=== PATIENT | male | born 1955 | race Caucasian/White ===

== ENCOUNTER 2018-02-13 09:02 | Emergency (ER) | payer SELFPAY ==
[~2018-02-13] VITALS: Ht 180.3 cm; Wt 82.0 kg
[2018-02-13 09:11] VITALS: BP 114/53
== END 2018-02-13 10:03 | disposition home or self-care (01) ==
LOC: ER 09:48
DX: M25.551 Pain in right hip (principal); Z91.81 History of falling; Z98.890 Other specified postprocedural states; Z88.0 Allergy status to penicillin
CPT/HCPCS: 99283